=== PATIENT | female | born 1995 | race Caucasian/White ===

== ENCOUNTER 2021-05-02 20:42 | Emergency (ER) | payer BC, SELFPAY ==
[2021-05-02 20:52] VITALS: BP 135/74; PULSE 92; RESP 18; TEMP 36.6; O2SAT 99
[2021-05-02] MEDS: Normal Saline 1,000 ML 1000 ML IV (21:25)
[2021-05-02 21:43] LABS: Bilirubin Negative (Negative); Blood Trace-lysed (Negative); Clarity Clear (Clear); Glucose Negative (Negative); Ketones Negative (Negative); Leukocyte Esterase Negative (Negative); Nitrite Negative (Negative); Urobilinogen 0.2 EU/dL (Up TO 0.2); pH 6.5 (5-8)
[2021-05-02 21:52] LABS: Bacteria Negative HPF (Negative); C & S Indicated? No; Crystals Negative HPF (Negative); Epithelial Cells Few HPF (Negative); Mucus Negative (Negative); RBC 0-2 HPF (0-2); WBC Negative HPF (0-5)
[2021-05-02 22:00] VITALS: BP 134/66; PULSE 108; RESP 16; O2SAT 97
--- NOTE | 2021-05-02 22:00 | ED.GENADUL_ITS ---
Discharge Plan Disposition Patient Disposition: HOME Condition: Stable Discharge Details Clinical Impression: Abdominal pain Primary Care Provider: Unknown,Unknown ED Provider: Palmira Garzon Home Meds and New Rx's Prescriptions: No Action levothyroxine 50 mcg Tablet 50 mcg PO DAILY RF: 0 Discharge Instructions Instructions: Abdominal Pain (ED) Additional Instructions: Follow up with primary care provider in 3-5 days. Return to ED sooner if any worsening or concerns. Increase oral fluids. Please take Tylenol or Ibuprofen with food every 4-6 hours as needed for pain and swelling. Medical Decision Making 26-year-old female with a history of hypothyroidism presents to the ER chief complaint periumbilical abdominal pain which began while at dinner tonight. Patient reports acute onset of a twisting sharp stabbing type pain with radiation up into her epigastrium. She reports having a history of abdominal problems. Reports hard stools with intermittent bright red blood none currently. She denies any vomiting, fever, dysuria or problems urinating. She is currently on her normal menses. control includes IUD. Labs show no evidence of leukocytosis, CMP is largely within normal limits urinalysis negative for UTI FINDINGS: Liver: Unremarkable. No mass. Gallbladder and bile ducts: Gallbladder is contracted, evaluation is limited, grossly, unremarkable. Pancreas: Unremarkable. No ductal dilation. Spleen: Unremarkable. No splenomegaly. Adrenal glands: Normal. No mass. Kidneys and ureters: Nonobstructing 2 mm right renal calculus. Stomach and bowel: Evaluation of the GI tract is limited without oral contrast. No obstruction. No mucosal thickening. Appendix: No evidence of appendicitis. Intraperitoneal space: No free air. No significant fluid collection. Vasculature: No abdominal aortic aneurysm. Lymph nodes: No enlarged lymph nodes. Urinary bladder: Unremarkable as visualized. Reproductive: Vaginal tampon in place. IUD in place. Bones/joints: Unremarkable. No acute fracture. Soft tissues: Unremarkable. IMPRESSION: No acute intra-abdominal pathology. IUD in place. Nonobstructing 2 mm right renal calculus. Discussed CT results with patient who verbalized understanding. Patient was given Toradol and Zofran here in department with some IV fluids which improved her symptoms greatly. Patient feels much better able to be discharged home. I do see a large amount of gas noted on the CT exam discussed this with patient who verbalized understanding Instructed patient to follow-up with PCP discussed strict return instructions. HPI General Mode of arrival: ambulatory . Date/Time Provider Initiated Documentation: 05/02/21 20:43 . Limitations to Documentation: no limitations . Information obtained by: patient and RN notes reviewed . HPI Narrative: 26-year-old female with a history of hypothyroidism presents to the ER chief complaint periumbilical abdominal pain which began while at dinner tonight. Patient reports acute onset of a twisting sharp stabbing type pain with radiation up into her epigastrium. She reports having a history of abdominal problems. Reports hard stools with intermittent bright red blood none currently. She denies any vomiting, fever, dysuria or problems urinating. She is currently on her normal menses. control includes IUD. Related Data Home Medications Medication Instructions Recorded Confirmed levothyroxine 50 mcg PO DAILY 05/02/21 05/02/21 Allergies Allergy/AdvReac Type Severity Reaction Status Date / Time No Known Drug Allergies Allergy Unverified 05/02/21 21:12 General Stated Complaint: Abd Prob CLAUDIA: 3 Review of Systems Narrative: Constitutional: Negative for weight loss, alert and oriented, well groomed, normal body habitus, appears comfortable. HEENT: Denies trauma, headaches, blurry vision, nasal discharge, sore throat, trouble swallowing. Chest: Denies chest pain, palpitations, irregular rhythm, hypertension. Respiratory: Denies Shortness of breath, cough, hemoptysis. GI: Denies vomiting, diarrhea, constipation. Positive nausea positive abdominal pain described as twisting and sharp radiating up midepigastrium. : Denies dysuria, hematuria, flank pain, rectal bleeding. Neuro: Denies dizziness, blurry vision, weakness, syncope, headache or facial numbness. Hematologic: Denies easy bruising, intolerance to heat or cold, hair loss. [facility] Social History Smoking/Tobacco Use Status: Never Smoking risk assessment performed?: Yes Alcohol Intake: current Alcohol Intake frequency: a few times a week Drug use: Never Substance use type: does not use Do you feel safe at home: Yes Do you feel safe in your relationship?: Yes Exam Narrative Exam Narrative: Constitutional: Alert and oriented x3. Appears stated age. No rmal body habitus. Head: Normocephalic, no trauma. Eyes: Pupils PERRLA, Red reflex noted, EOM's intact. Eyelids symmetrical without lesions, discharge, or swelling. ENT: Bilateral TM's WNL, External ear normal to inspection, no mastoid TTP, swelling, or erythema, Nasal turbinates WNL, no nasal discharge. Normal dentition, Posterior pharynx WNL, no exudate. Chest: RRR, Normal S1, S2, distal pulses intact. Resp: Lungs clear to auscultation bilaterally, no wheezes, rales, or rhonchi. Abdomen: Soft, nontender to palpation all 4 quadrants. Mild periumbilical tenderness no masses palpated Musculoskeletal: Normal gait, 5/5 strength to all four extremities. Skin: No suspicious rashes or lesions. Capillary refill less than 2 sec. Neurologic: Cranial nerves II-XII intact. Alert and oriented x 3. DTR's intact. Hematologic/Lymphatic: No ecchymosis, no lymphadenopathy. Course Vital Signs Vital signs: Vital Signs Temperature 36.6 C 05/02/21 20:52 Pulse 92 H 05/02/21 20:52 Respiratory Rate 18 05/02/21 20:52 Blood Pressure 135/74 05/02/21 20:52 Pulse Oximetry 99 05/02/21 20:52 Temperature 36.6 C 05/02/21 20:52 Temperature Source Skin 05/02/21 20:52 Pulse 92 H 05/02/21 20:52 Respiratory Rate 18 05/02/21 20:52 Respiratory Effort Non-Labored 05/02/21 21:14 Blood Pressure 135/74 05/02/21 20:52 Blood Pressure Position Sitting 05/02/21 20:52 Pulse Oximetry 99 05/02/21 20:52 Oxygen Delivery Method Room Air 05/02/21 20:52 Oxygen Flow Rate 0 05/02/21 20:52 Pain Level 7 05/02/21 20:52 Lab/Test Results Lab/Test Results: Laboratory Tests Range/Units 05/02/21 21:15 Urine Color (Yellow) Yellow Urine Clarity (Clear) Clear Urine pH (5-8) 6.5 Ur Specific [place] (1.005-1.025) 1.020 Urine Protein (Negative) mg/dL Negative Urine Ketones (Negative) mg/dL Negative Urine Blood (Negative) Trace-lysed H Urine Nitrite (Negative) Negative Urine Bilirubin (Negative) Negative Urine Urobilinogen (Up TO 0.2) EU/dL 0.2 Ur Leukocyte Esterase (Negative) Negative Urine RBC (0-2) HPF 0-2 Urine WBC (0-5) HPF Negative Ur Epithelial Cells (Negative) HPF Few Urine Crystals (Negative) HPF Negative Urine Bacteria (Negative) HPF Negative Urine Mucus (Negative) Negative Ur Culture Indicated? No Urine Glucose (Negative) mg/dL Negative POC- Test(urine) Negative
[2021-05-02 22:06] LABS: Abs Immature Grans 0.03 10^3/uL (0.0-0.06); Absolute Basophil Count 0.03 10^3/uL (0.0-0.2); Absolute Eosinophil Count 0.11 10^3/uL (0.0-0.7); Absolute Lymphocyte Count 2.39 10^3/uL (1.2-3.4); Absolute Monocyte Count 0.65 10^3/uL (0.1-0.8); Absolute Neutrophil Count 5.14 10^3/uL (1.2-6.7); Basophils % 0.4; Eosinophils % 1.3; HCT 41.6 % (36.0-46.0); HGB 13.9 g/dL (11.2-15.7); Immature Grans % 0.4; Lymphocytes % 28.6; MCH 30.5 pg (27.0-33.0); MCHC 33.4 % (32.0-36.0); MCV 91.4 fL (80-95); MPV 9.8 fL (8.0-11.0); Monocytes % 7.8; Neutrophils % 61.5; Nucleated RBC 0 %; Platelet Count 293 10^3/uL (130-400); RBC 4.55 10^6/uL (3.93-5.22); RDW 12.2 % (11.7-14.6); RDW-SD 40.7 fL; WBC 8.35 10^3/uL (4.4-10.8)
[2021-05-02 22:17] LABS: ALT 12 U/L (14-59); AST 15 U/L (15-37); Albumin 4.2 g/dL (3.4-5.0); Alkaline Phosphatase 62 U/L (46-116); Anion Gap 11.1 mmol/L (3-11); BUN 8 mg/dL (7-18); Bilirubin, Total 0.3 mg/dL (0.2-1.0); CO2 26.9 mmol/L (21.0-32.0); CREATININE 0.8 mg/dL (0.55-1.02); Calcium 9.5 mg/dL (8.5-10.1); Chloride 107 mmol/L (98-107); Glucose 96 mg/dL (74-106); Magnesium 2.1 mg/dL (1.8-2.4); Potassium 3.8 mmol/L (3.5-5.1); Sodium 145 mmol/L (136-145); Total Protein 7.8 g/dL (6.4-8.2)
[2021-05-02] MEDS: Ondansetron 4 MG/2 ML VIAL IVP (22:19)
[2021-05-02] MEDS: Ketorolac 15 MG/ML VIAL IVP (22:22)
[2021-05-02 23:00] VITALS: BP 110/59; PULSE 83; RESP 16; O2SAT 98
--- NOTE | 2021-05-02 23:19 | DI.CT_ITS ---
Exam(s) CT ABDOMEN PELVIS W EXAM: CT ABDOMEN PELVIS W CLINICAL HISTORY: Abd Pain. TECHNIQUE: Imaging Protocol: Axial computed tomography images with coronal and sagittal reformatted images were created and reviewed CONTRAST MATERIAL: Intravenous: Omnipaque 100cc Oral: None COMPARISON: No exams were available for comparison FINDINGS: VISUALIZED LUNG BASES: No nodules nor pleural effusions evident. ABDOMEN: There is no ascites. LIVER: There are no focal hepatic lesions evident . GALLBLADDER/BILIARY: Gallbladder is contracted no obvious radiopaque calcified gallstones noted. CBD is not dilated. PANCREAS: No evidence of pancreatic mass nor dilatation of the pancreatic duct. SPLEEN: Spleen is not enlarged. No obvious intrasplenic lesions. Splenic and portal veins are paten t. ADRENALS: There are no significant adrenal masses. KIDNEYS:No cysts evident. There is a tiny 2 millimeter nonobstructive calculus noted in the lower tay e calyx of the right kidney. No other significant focal kidney findings. No hydronephrosis. No hyd roureter.. ABDOMINAL AORTA: Abdominal aorta is not enlarged. LYMPH NODES:There is no retroperitineal nor paraaortic adenopathy. ABDOMINAL WALL: No evidence of significant anterior abdominal wall hernia. GI: There is no evidence of bowel obstruction, free air, nor abscess. PELVIS: GI: No evidence of appendicitis.No evidence of sigmoid diverticulitis. LYMPH NODES: There is no intrapelvic nor inguinal adenopathy. REPRODUCTIVE: There is a T-shaped IUD in satisfactory position within the uterine canal. There are n o abnormal adnexal masses nor free fluid in the pelvis. URINARY BLADDER: No calculi nor obvious masses evident OSSEOUS: No significant osseous lesions. Sacroiliac joints appear unremarkable. IMPRESSION: 1. The gallbladder is contracted and difficult to evaluate for small calculi. If clinically indicate d follow-up ultrasound can be performed. 2. Tiny nonobstructive calculus in the right kidney. No other significant focal renal findings. No hydronephrosis. 3. IUD in satisfactory position within the uterus.. No significant adnexal findings. No free fluid. RADIATION DOSE DELIVERED: 890.07mGy.cm Total DLP DATA REPOSITORY: All CT scans at this facility are submitted to the National Radiology Data Registry (NRDR) Dose Index Registry (DIR) with the [employer] ([employer]). RADIATION OPTIMIZATION: All CT scans at this facility use at least one of these dose optimization te chniques: automated exposure control; mA and/or kV adjustment per patient size (includes targeted exa ms where dose is matched to clinical indication); or iterative reconstruction.
[2021-05-02] MEDS: Normal Saline - Diluent 50 ML VIAL IV (23:23)
[2021-05-02] MEDS: Omnipaque 350 MG/ML 100 ML BTL IJ (23:24)
[2021-05-03] VITALS: BP 119/71; PULSE 84; RESP 16; O2SAT 98
--- NOTE | 2021-05-03 00:07 | DI.VRAD_ITS ---
PROCEDURE INFORMATION: Exam: CT Abdomen And Pelvis With Contrast Exam date and time: 05/02/2021 10:06 PM Age: 26 years old Clinical indication: Epigastric; Patient HX: Abdominal pain. TECHNIQUE: Imaging protocol: Computed tomography of the abdomen and pelvis with contrast. Radiation optimization: All CT scans at this facility use at least one of these dose optimization techniques: automated exposure control; mA and/or kV adjustment per patient size (includes targeted exams where dose is matched to clinical indication); or iterative reconstruction. Contrast material: OMNI-PAQUE 350; Contrast volume: 100 ml; Contrast route: INTRAVENOUS (IV); COMPARISON: No relevant prior studies available. FINDINGS: Liver: Unremarkable. No mass. Gallbladder and bile ducts: Gallbladder is contracted, evaluation is limited, grossly, unremarkable. Pancreas: Unremarkable. No ductal dilation. Spleen: Unremarkable. No splenomegaly. Adrenal glands: Normal. No mass. Kidneys and ureters: Nonobstructing 2 mm right renal calculus. Stomach and bowel: Evaluation of the GI tract is limited without oral contrast. No obstruction. No mucosal thickening. Appendix: No evidence of appendicitis. Intraperitoneal space: No free air. No significant fluid collection. Vasculature: No abdominal aortic aneurysm. Lymph nodes: No enlarged lymph nodes. Urinary bladder: Unremarkable as visualized. Reproductive: Vaginal tampon in place. IUD in place. Bones/joints: Unremarkable. No acute fracture. Soft tissues: Unremarkable. IMPRESSION: No acute intra-abdominal pathology. IUD in place. Nonobstructing 2 mm right renal calculus. Dictated and Authenticated by: Rico Gardiner MD. Ordering:AYAKA Chavis MD
--- NOTE | 2021-05-03 08:25 | NUR.NOTE ---
Nursing Note: Referral given to Care Management to establish care with a PCP TIAN. Sena Sarah
== END 2021-05-03 01:15 | disposition home or self-care (01) ==
PROVIDERS: Emergency Medicine; Emergency Provider Registered Nurse Emergency
DX: R10.9 Unspecified abdominal pain (principal)
CPT/HCPCS: 80053; 81025; 96361; 96374; 96375; 99285; 74177; 81003; 81015; 83735; 85025; 99283; J1885; J2405; J3490